=== PATIENT | female | born 2000 | race Caucasian/White ===

== ENCOUNTER 2022-05-19 07:58 | Outpatient (CLI) | payer BC, MEDICAID, SELFPAY ==
[2022-05-19] VITALS (11 sets, daily range): BP systolic 108–122; BP diastolic 64–81; PULSE 31–107; RESP 16–18; TEMP 36.5–37.7; O2SAT 82–100; BMI 24.5
--- NOTE | 2022-05-19 08:25 | ED.NAVMDI ---
HPI - Nausea/Vomiting/Diarrhea General Time Seen by Provider: 08:25 Date Seen: 05/19/22 Chief complaint: Nausea/Vomiting Stated complaint: 36 weeks /vomiting Time Seen by Provider: 05/19/22 08:25 Source: patient and RN notes reviewed Mode of arrival: ambulatory Limitations: no limitations History of Present Illness HPI Narrative: Tana is a very pleasant 21-year-old female with her 1st baby who comes to the emergency room after vomiting. Patient notes the onset of vomiting last evening. This has been ongoing and she has been unable to keep any fluids down. She has not experienced any diarrhea or abdominal pain. Notes that she has been having ?[place]man[place] and ?but denies any pain. She denies any urinary discomfort. She notes that she has not urinated for quite some time. This has been uncomplicated to this point. She has not had any high blood pressure. When I enter the room nursing staff tells me they got 150 for heart tones. Tana has been feeling baby move. Associated nausea: Yes Related Data Home Medications Medication Instructions Recorded Confirmed prenat.vits,shira,[id number] 1 tab PO DAILY 05/19/22 05/19/22 Allergies Allergy/AdvReac Type Severity Reaction Status Date / Time azithromycin [From Zithromax] Allergy Mild rash Verified 05/19/22 08:11 Review of Systems Status of ROS: Reports: 10 or more systems reviewed and unremarkable except as noted in History and below Const: Denies: fever or chills Eyes: Denies: change in vision ENMT: Denies: throat pain, neck pain or difficulty swallowing Cardio: Denies: chest pain, palpitations, swelling of feet/ankles or shortness of breath with exertion Resp: Denies: shortness of breath or cough GI: Reports: nausea and vomiting; Denies: abdominal pain, diarrhea, difficulty swallowing or blood in stool : Reports: decreased urine ouput; Denies: painful urination Musculo: Denies: back pain or neck pain Integ/Breast: Denies: rash Neuro: Denies: headache PFSH PFSH Social History Smoking Status: Never smoker Do you use any of these nicotine containing products: None Second hand tobacco smoke exposure: No How often do you have a drink containing alcohol: never AUDIT-C Alcohol total score: 0 Non-prescribed substance use: denies use Exam Narrative: Exam Narrative: Tana is alert and oriented. GCS of 15 External ears eyes nose clear. She does have moist mucous membranes but no excessive saliva. Neck was supple without lymphadenopathy Heart with a tachycardic rate but normal rhythm. Lungs are clear bilaterally Abdomen is gravid but soft no tenderness noted. Lower extremities with scant peripheral edema. No calf tenderness. Const: Vital Signs, click to edit/add: Vital Signs - 24 hr 05/19/22 08:07 05/19/22 08:40 05/19/22 08:51 Temperature 97.7 F Pulse Rate 107 H 107 H Pulse Rate [Right Pulse Oximeter] 105 H Respiratory Rate 18 Blood Pressure 119/78 Blood Pressure [Ri ght Upper Arm] 122/81 Pulse Oximetry 98 98 98 Oxygen Delivery Me thod Room Air 05/19/22 09:00 05/19/22 09:01 05/19/22 09:02 Temperature Pulse Rate 86 96 88 Pulse Rate [Right Pulse Oximeter] Respiratory Rate Blood Pressure 119/74 Blood Pressure [Ri ght Upper Arm] Pulse Oximetry 98 99 98 Oxygen Delivery Me thod 05/19/22 09:30 05/19/22 09:31 05/19/22 10:09 Temperature Pulse Rate 95 93 Pulse Rate [Right Pulse Oximeter] Respiratory Rate 18 Blood Pressure 108/74 Blood Pressure [Ri ght Upper Arm] 120/73 Pulse Oximetry 100 100 Oxygen Delivery Me thod Course Course Hospital Course: Differential diagnosis does include but is not limited to viral gastroenteritis, gastritis, biliary colic, small-bowel obstruction, ileus and labor. Will place an IV and give 2 L of normal saline. 4 mg of IV Zofran will be given for nausea. CBC, comprehensive panel, urinalysis also ordered. Will also include a COVID/influenza swab. Reevaluation(s) Reevaluation #1: No further vomiting after Zofran. Vital Signs Vital signs: Initial Vital Signs Temperature 97.7 F 05/19/22 08:07 Temperature Source Temporal Artery Scan 05/19/22 08:07 Pulse Rate 105 H 05/19/22 08:07 Pulse Rhythm 05/19/22 08:07 Respiratory Rate 18 05/19/22 08:07 Blood Pressure 122/81 05/19/22 08:07 Blood Pressure Mean 94 05/19/22 08:07 Blood Pressure Position Sitting 05/19/22 08:07 Pulse Oximetry 98 05/19/22 08:07 Oxygen Delivery Method 05/19/22 08:07 Vital Signs Temperature 97.7 F 05/19/22 08:07 Pulse Rate 105 H 05/19/22 08:07 Respiratory Rate 18 05/19/22 08:07 Blood Pressure 122/81 05/19/22 08:07 Pulse Oximetry 98 05/19/22 08:07 Oxygen Delivery Method 05/19/22 08:07 Temperature 97.7 F 05/19/22 08:07 Pulse Rate 93 05/19/22 09:31 Respiratory Rate 18 05/19/22 10:09 Blood Pressure 120/73 05/19/22 10:09 Pulse Oximetry 100 05/19/22 09:31 Oxygen Delivery Method 05/19/22 08:07 MDM - Nausea/Vomiting/Diarrhea MDM Narrative Medical decision making narrative: 1. Vomiting-at this time laboratory values including a white count and LFTs are reassuring. Patient has had no further vomiting. Been to fluid challenge sure but this has not been accomplished at this point. OB nurses here at this time. 2. Contractions-patient notes that she does have some low abdominal discomfort at this time. OB nurses concerned that she does not have a reactive strip. They will be taking patient down to the floor for continued IV fluids as well as further evaluation. They state that they will be in contact with Dr. Cruz who is on-call at this time. 3. Disposition-discharged from the ER and sent to OB for observation. Results discussed with family although urine results were not back at that time. They do include 4+ urinary ketones. Medical Records Attestation: I reviewed the patient's medical records. Lab Data Attestation: I reviewed the patient's lab results. Labs: Lab Results 05/19/22 05/19/22 05/19/22 Range/Units 08:47 08:47 08:53 WBC 5.92 (4.50-11.00) K/uL RBC 4.10 (4.00-5.20) m/uL Hgb 13.1 (12.0-16.0) gm/dL Hct 37.6 (33.0-51.0) % MCV 92 (80-100) fL MCH 32 (26-34) pg MCHC 35 (32-36) gm/dL RDW Coeff of Shanell 13.4 (11.5-15.5) % Plt Count 92 L (140-440) K/uL Neut % (Auto) 88.3 H (42.0-72.0) % Lymph % (Auto) 5.1 L (20-44) % [place] % (Auto) 5.7 (0.0-11.0) % Eos % (Auto) 0.2 (0.0-7.0) % Baso % (Auto) 0.2 (0.0-3.0) % Neut # (Auto) 5.20 (1.7-7.0) K/uL Lymph # (Auto) 0.30 L (0.90-2.90) K/uL [place] # (Auto) 0.30 (0.00-0.90) K/UL Eos # (Auto) 0.01 (0.00-0.50) K/uL Baso # (Auto) 0.01 (0.00-0.30) K/uL Sodium 136 (135-149) mmol/L Potassium 3.5 L (3.6-5.1) mmol/L Chloride 108 (96-114) mmol/L Carbon Dioxide 22 (20-32) mmol/L BUN 10 (5-24) mg/dL Creatinine 0.5 (0.5-1.5) mg/dL Estimated Creat Clear 179.54 Estimated GFR 137 ml/min Glucose 97 (60-115) mg/dL Calcium 8.7 (8.4-10.6) mg/dL Total Bilirubin 0.9 (0.1-1.5) mg/dL AST 23 (12-35) U/L ALT 15 (4-35) U/L Alkaline Phosphatase 122 (40-150) U/L Total Protein 6.9 (6.0-8.3) g/dL Albumin 3.9 (3.3-5.0) g/dL Urine Color (Yellow) Urine Appearance (Clear) Urine pH (5.0-8.5) Ur Specific [place] (1.000-1.030) Urine Protein (Negative) Urine Glucose (UA) (Negative) Urine Ketones (Negative) Urine Blood (Negative) Urine Nitrite (Negative) Urine Bilirubin (Negative) Urine Urobilinogen (0.2-1.0) Ur Leukocyte Esterase (Negative) SARS-CoV-2 (PCR) Negative SARS-CoV-2 (Negative) Influenza Type A (PCR) Negative PCR FLU A (Negative) Influenza Type B (PCR) Negative PCR FLU B (Negative) 05/19/22 Range/Units 08:53 WBC (4.50-11.00) K/uL RBC (4.00-5.20) m/uL Hgb (12.0-16.0) gm/dL Hct (33.0-51.0) % MCV (80-100) fL MCH (26-34) pg MCHC (32-36) gm/dL RDW Coeff of Shanell (11.5-15.5) % Plt Count (140-440) K/uL Neut % (Auto) (42.0-72.0) % Lymph % (Auto) (20-44) % [place] % (Auto) (0.0-11.0) % Eos % (Auto) (0.0-7.0) % Baso % (Auto) (0.0-3.0) % Neut # (Auto) (1.7-7.0) K/uL Lymph # (Auto) (0.90-2.90) K/uL [place] # (Auto) (0.00-0.90) K/UL Eos # (Auto) (0.00-0.50) K/uL Baso # (Auto) (0.00-0.30) K/uL Sodium (135-149) mmol/L Potassium (3.6-5.1) mmol/L Chloride (96-114) mmol/L Carbon Dioxide (20-32) mmol/L BUN (5-24) mg/dL Creatinine (0.5-1.5) mg/dL Estimated Creat Clear Estimated GFR ml/min Glucose (60-115) mg/dL Calcium (8.4-10.6) mg/dL Total Bilirubin (0.1-1.5) mg/dL AST (12-35) U/L ALT (4-35) U/L Alkaline Phosphatase (40-150) U/L Total Protein (6.0-8.3) g/dL Albumin (3.3-5.0) g/dL Urine Color Yellow (Yellow) Urine Appearance Cloudy A (Clear) Urine pH 6.0 (5.0-8.5) Ur Specific [place] >= 1.030 (1.000-1.030) Urine Protein 1+ A (Negative) Urine Glucose (UA) Negative (Negative) Urine Ketones 4+ A (Negative) Urine Blood Negative (Negative) Urine Nitrite Negative (Negative) Urine Bilirubin 1+ A (Negative) Urine Urobilinogen 0.2 (0.2-1.0) Ur Leukocyte Esterase Trace A (Negative) SARS-CoV-2 (PCR) (Negative) Influenza Type A (PCR) (Negative) Influenza Type B (PCR) (Negative) Discharge Plan Discharge Clinical Impression: Vomiting Patient Disposition: Home, Self-Care Condition: Improved Additional Instructions: Proceed to OB for continued monitoring and IV fluids Prescriptions: No Action prenat.vits,shira,[id number]-[id number] 1 tab PO DAILY Follow Up/Referrals: Provider,Not a Local [Referring] - Stand Alone Forms: MyHealth Info Instructions Discharge Comment: to center with center staff
[2022-05-19] MEDS: ONDANSETRON 2 MG/ML inj 4 MG IVP (08:46)
[2022-05-19] MEDS: 0.9 % SODIUM CHLORIDE 1000 ml 1,000 ML IV ×2 (08:46→10:07)
[2022-05-19 08:58] LABS: Basophils Absolute Auto 0.01 K/uL (0.00-0.30); Basophils Percent Auto 0.2 % (0.0-3.0); Eosinophils Absolute Auto 0.01 K/uL (0.00-0.50); Eosinophils Percent Auto 0.2 % (0.0-7.0); Hematocrit 37.6 % (33.0-51.0); Hemoglobin* 13.1 gm/dL (12.0-16.0); Immature Granulocytes Abs Auto 0.03 K/uL (0.00-0.30); Immature Granulocytes Pct Auto 0.5 %; Lymphocytes Percent Auto 5.1 % (20-44); Mean Corpuscular HGB Conc 35 gm/dL (32-36); Mean Corpuscular Hemoglobin 32 pg (26-34); Mean Corpuscular Volume 92 fL (80-100); Monocytes Percent Auto 5.7 % (0.0-11.0); Neutrophils Percent Auto 88.3 % (42.0-72.0); Platelet Count* 92 K/uL (140-440); RDW Coefficient of Variation % 13.4 % (11.5-15.5); White Blood Count* 5.92 K/uL (4.50-11.00)
[2022-05-19 09:00] LABS: Slide Review Reflex No
[2022-05-19 09:22] LABS: Albumin* 3.9 g/dL (3.3-5.0); Chloride* 108 mmol/L (96-114); Potassium* 3.5 mmol/L (3.6-5.1); Sodium* 136 mmol/L (135-149)
[2022-05-19 09:24] LABS: Aspartate Amino Transferase* 23 U/L (12-35); Bilirubin Total* 0.9 mg/dL (0.1-1.5); Carbon Dioxide* 22 mmol/L (20-32); Creatinine* 0.5 mg/dL (0.5-1.5); Est. Creatinine Clearance* 179.54; Estimated Glomerular Filt Rate 137 ml/min; Total Protein* 6.9 g/dL (6.0-8.3)
[2022-05-19 09:25] LABS: Alanine Aminotransferase* 15 U/L (4-35); Alkaline Phosphatase* 122 U/L (40-150); Blood Urea Nitrogen* 10 mg/dL (5-24); Calcium* 8.7 mg/dL (8.4-10.6); Glucose* 97 mg/dL (60-115)
[2022-05-19 09:37] LABS: PCR FLU A Negative PCR FLU A (Negative); PCR FLU B Negative PCR FLU B (Negative)
[2022-05-19 09:40] LABS: SARS PCR* Negative SARS-CoV-2 (Negative)
[2022-05-19 09:58] LABS: Appearance Urine Cloudy (Clear); Bilirubin Urine 1+ (Negative); Blood Urine Negative (Negative); Color Urine Yellow (Yellow); Glucose Urine Negative (Negative); Ketones Urine 4+ (Negative); Leukocyte Esterase Urine Trace (Negative); Nitrite Urine Negative (Negative); Protein Urine 1+ (Negative); Specific Gravity Urine >= 1.030 (1.000-1.030); Urobilinogen Urine 0.2 (0.2-1.0)
[2022-05-19 10:14] LABS: Bacteria Urine Many; RBC Urine 0-2 (0-2); Squamous Epithelial Cell Urine Moderate (None-Few)
--- NOTE | 2022-05-19 17:55 | PC.OBNST ---
NST Note NST Note Start: 05/19/22 10:28 Freq: ONCE Status: Discharge Protocol: Document 05/19/22 17:40 SD (Rec: 05/19/22 17:55 SD [id number]) NST Note 1 Para (# of births) 0 EDC 06/17/22 Gestational Age In Weeks & Days 35 Weeks & 6 Days Patient Presented with Complaint(s) of Nausea and vomiting Reactive Yes Appropriate for Gestational Age Yes RN Miranda Date 05/19/22 Reactive Yes Appropriate for Gestational Age Yes RN Brijesh Date 05/19/22 OB NST charge Yes Complete NST Note via Write Note Yes The provider's electronic signature indicates the NST is reactive/appropriate for gestational age. *Note to provider: If an addendum is required, open the patient's chart and click on the note under the Nurse/Allied Health tab.
== END 2022-05-19 13:13 | disposition home or self-care (01) ==
LOC: ED 10:09 → OB OUT 10:17 → OB 10:18
PROVIDERS: Emergency Provider Family Medicine; PCP Family Medicine; Visit Provider Family Medicine
DX: O21.2 Late vomiting of pregnancy (principal); Z3A.35 35 weeks gestation of pregnancy
CPT/HCPCS: 36415; 59025; 80053; 81001; 85025; 87086; 87631; 99213; 99284; J2405; J7030

== ENCOUNTER 2022-06-14 09:37 | Inpatient (IN) | payer BC, MEDICAID, SELFPAY ==
[2022-06-14] VITALS (56 sets, daily range): BP systolic 104–153; BP diastolic 53–85; PULSE 56–169; RESP 16–18; TEMP 36.6–37.3; O2SAT 99–100; BMI 24.7
[2022-06-14 10:58] LABS: SARS PCR* Negative SARS-CoV-2 (Negative)
[2022-06-14 11:46] LABS: Basophils Absolute Auto 0.01 K/uL (0.00-0.30); Basophils Percent Auto 0.1 % (0.0-3.0); Eosinophils Absolute Auto 0.03 K/uL (0.00-0.50); Eosinophils Percent Auto 0.4 % (0.0-7.0); Immature Granulocytes Abs Auto 0.03 K/uL (0.00-0.30); Immature Granulocytes Pct Auto 0.4 %; Lymphocytes Percent Auto 13.5 % (20-44); Mean Corpuscular HGB Conc 35 gm/dL (32-36); Mean Corpuscular Hemoglobin 32 pg (26-34); Mean Corpuscular Volume 90 fL (80-100); Monocytes Percent Auto 7.1 % (0.0-11.0); Neutrophils Percent Auto 78.5 % (42.0-72.0); Platelet Count* 89 K/uL (140-440); RDW Coefficient of Variation % 12.7 % (11.5-15.5); Red Blood Count 3.76 m/uL (4.00-5.20)
[2022-06-14 11:55] LABS: Slide Review Reflex No
[2022-06-14] MEDS: ROPIVACAINE 0.2% 100 ml 100 ML 12 MG EPIDURAL (12:45)
--- NOTE | 2022-06-14 12:58 | PM.ANBPRC ---
[facility] Social History Smoking Status: Never smoker Do you use any of these nicotine containing products: None Second hand tobacco smoke exposure: No How often do you have a drink containing alcohol: never AUDIT-C Alcohol total score: 0 Non-prescribed substance use: denies use Meds Home Medications and Allergies Home Medications Medication Instructions Recorded Confirmed Type prenat.vits,shira,[id number] 1 tab PO DAILY 05/19/22 06/14/22 History Allergies Allergy/AdvReac Type Severity Reaction Status Date / Time azithromycin [From Zithromax] Allergy Mild rash Verified 06/14/22 09:11 Results Labs Labs: Laboratory Results - last 24 hr 06/14/22 06/14/22 06/14/22 09:36 11:40 11:40 WBC 7.20 RBC 3.76 L Hgb 12.0 Hct 34.0 MCV 90 MCH 32 MCHC 35 RDW Coeff of Shanell 12.7 Plt Count 89 L Neut % (Auto) 78.5 H Lymph % (Auto) 13.5 L [place] % (Auto) 7.1 Eos % (Auto) 0.4 Baso % (Auto) 0.1 Neut # (Auto) 5.70 Lymph # (Auto) 1.00 [place] # (Auto) 0.50 Eos # (Auto) 0.03 Baso # (Auto) 0.01 SARS-CoV-2 (PCR) Negative SARS-CoV-2 Blood Type O Positive Antibody Screen NEGATIVE Vital Signs Vital Signs: Last Vital Signs Temp 98 F 06/14/22 12:57 Pulse 65 06/14/22 12:57 Resp 16 06/14/22 09:19 BP 111/64 06/14/22 12:57 Pulse Ox 100 06/14/22 12:52 Weight: 73.936 kg Height: 172.72 cm Anesthesia Procedures Epidural Insertion Patient Location: OB Start Time: 12:30 Stop Time: 13:30 Start Date: 06/14/22 Stop Date: 06/14/22 Reason for Block: procedure for pain Patient Position: sitting Performed By: John Onofre Preanesthetic Checklist: IV checked, risks and benefits discussed, monitors and equipment checked and anesthesia consent Prep: chlorhexidine gluconate Monitoring: blood pressure monitoring, continuous pulse oximetry and heart rate Approach: midline Vertebral Space: lumbar (1-5) Epidural Technique: MANJU saline Needle Type: Tuohy needle Injection Technique: continuous catheter Needle gauge: 17 Needle Length (cm): 10 cm Needle Insertion Depth (cm): 5 Catheter Gauge: 19 Catheter Type: multi-orifice Catheter at skin depth (cm): 9 Test Dose Result: negative and lidocaine 1.5% with epinephrine 1 to 200,000
[2022-06-14] MEDS: LACTATED RINGERS 1000 ML 1,000 ML 125 ML IV (14:28)
[2022-06-14 18:13] LABS: Alanine Aminotransferase* 14 U/L (4-35); Aspartate Amino Transferase* 23 U/L (12-35)
[2022-06-14 18:56] LABS: Creatinine* 0.4 mg/dL (0.5-1.5); Est. Creatinine Clearance* 224.43; Estimated Glomerular Filt Rate 144 ml/min
[2022-06-14 18:57] LABS: Blood Urea Nitrogen* 7 mg/dL (5-24)
[2022-06-14 19:05] LABS: Fibrinogen* 440 mg/dL (200-450)
[2022-06-14 19:06] LABS: INR 0.96 (0.91-1.10); Prothrombin Time 13.4 Seconds
--- NOTE | 2022-06-14 19:47 | PM.OBHPLI ---
OB - H&P: HPI Labor/Induction History of Present Illness Time Seen by Provider: 19:47 Date Seen: 06/14/22 Chief Complaint: The patient is a 21 year old 1 para 0 at 40+0 weeks gestation by 8 wk US, who presents with contractions. uncomplicated, though was found to have platelets of 89 upon admission. Chart review shows platelets of 92 1 month ago at triage visit. Patient endorses contractions intermittently over the past few days. Periods of contractions every 5 minutes, but then would peter out. More intense and consistent overnight. Presented to L&D this AM, and was found to be 3.5/90/-1 and katelynn every 3-4 minutes. She was admitted, and requested epidural for pain control at 1245. AROM for clear fluid at 1530. Patient progressed to complete at 1917, and is currently pushing with good effort. Chief complaint: Maternity : 1 Para: 0 Date of last menstrual period: 07/30/21 Estimated date of delivery: 05/06/22 Gestational age based on last menstrual period: 45 Narrative: Tana Fonseca is a 21 year old 1 para 0 at 40+0 weeks gestation by 8 wk US, who presents with contractions. uncomplicated, though was found to have platelets of 89 upon admission. Chart review shows platelets of 92 1 month ago at triage visit. Patient endorses contractions intermittently over the past few days. Periods of contractions every 5 minutes, but then would peter out. More intense and consistent overnight. Presented to L&D this AM, and was found to be 3.5/90/-1 and katelynn every 3-4 minutes. She was admitted, and requested epidural for pain control at 1245. AROM for clear fluid at 1530. Patient progressed to complete at 1917, and is currently pushing with good effort. History of Present Dating criteria: based on 1st trimester US only care: good care Ultrasounds: normal 1st trimester US and normal mid trimester US Abnormal ultrasound findings: 20 week survey with EFW 63rd percentile. Labs Blood type: O (+) positive Rubella: immune RPR/VDLR: nonreactive GBS status: negative HBsAG: negative Review of Systems Status of ROS: Reports: 10 or more systems reviewed and unremarkable except as noted in History and below Meds Home Medications and Allergies Home Medications Medication Instructions Recorded Confirmed Type prenat.vits,shira,jaa-vpjm-ztaxa 1 tab PO DAILY 05/19/22 06/14/22 History Allergies Allergy/AdvReac Type Severity Reaction Status Date / Time azithromycin [From Zithromax] Allergy Mild rash Verified 06/14/22 09:11 OB - H&P: Exam Physical Exam: Vital signs: Temp Pulse Resp BP Pulse Ox 98.9 F 103 H 18 124/70 100 06/14/22 19:30 06/14/22 19:31 06/14/22 19:30 06/14/22 19:31 06/14/22 12:52 Narrative: General appearance: Well-appearing adult female. Alert, oriented and appropriate. Sitting up in hospital bed. HEENT: EOMI, no conjunctival injection or discharge. MMM. Neck: Supple. CV: RRR, no rubs, murmurs or extra heart sounds. Pulm: CTAB, no wheezes, rales or rhonchi. Abdomen: Gravid. Soft, non-tender. MSK: Moving all extremities. Ext: Warm and well-perfused. No LE edema. Skin: No rashes appreciated over exposed skin. Neuro: Grossly normal strenth and sensation. No focal deficits. Psych: Normal affect. Detailed Labor and Delivery Exam: Dilation (cm): 10 Effacement (%): 100 Fetus (Single): Station: +4 Amniotic Membrane Status: AROM Amniotic Membrane Fluid Description: Clear Heart Rate Baseline: 140 Monitor Accelerations: Present Monitor Decelerations: Variable Nursing Home Variability: Moderate (6-25) OB - Results Labs Labs: Short CBC 06/14/22 Range/Units 11:40 WBC 7.20 (4.50-11.00) K/uL Hgb 12.0 (12.0-16.0) gm/dL Hct 34.0 (33.0-51.0) % Plt Count 89 L (140-440) K/uL BMP 06/14/22 11:40 BUN 7 Creatinine 0.4 L Liver Function 06/14/22 Range/Units 11:40 AST 23 (12-35) U/L ALT 14 (4-35) U/L OB - Problem Based A/P Additional Plan (1) Term : Status: Acute Plan: - Complete and pushing - Epidural for pain relief with good effect - GBS negative - FHT reassuring - Anticipate vaginal delivery (2) Thrombocytopenia: Problem details: Platelets 89 on admission. Previously 92 on 05/19/21. 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 Status: Acute Plan: - Monitor closely for bleeding - Trend platelets after delivery. Consider additional work-up if persistent.
[2022-06-14] MEDS: OXYTOCIN 30 unit/500 ML in NS 30 UNIT/500 ML BAG 300 UNIT IVPB (20:38)
[2022-06-14] MEDS: LIDOCAINE 1 % PF 30 ML INJECTION (20:40)
--- NOTE | 2022-06-14 20:52 | W.PM.VAGDEL1 ---
Procedure Delivery date: 06/14/22 Procedure Done: Global Intrapartal Events: None Delivery augmentation: rupture of membranes Delivery monitor: external FHT Route of delivery: Episiotomy description: None Laceration description: Vaginal - 1st Degree Delivery repair: Vicryl Estimated blood loss (mL): 100 Anesthesia type: Epidural Narrative: 21 yo at 40w0d by early US who presented with contractions. Found to be 3.5/90/-1 on admission around 0800. Received epidural for pain control with good results. AROM for clear fluid at 1533. Progressed to complete at 1916. Began pushing with good effort. Spontaneous delivery of a vigorous male over intact perineum at 2026. Infant was placed on maternal chest. Cord was clamped and cut after 1 minute. There was spontaneous delivery of placenta, complete, 3V cord, within 5 minutes. A first degree vaginal laceration was repaired with 3-0 vicryl suture. QBL was 100 cc. All counts were correct. and mother are resting comfortably. Infant Infant Gender: Male presentation: vertex Placental Delivery Description: Spontaneous Cord Description: 3 Vessels
[2022-06-14 23:21] LABS: Basophils Absolute Auto 0.01 K/uL (0.00-0.30); Basophils Percent Auto 0.1 % (0.0-3.0); Eosinophils Absolute Auto 0.02 K/uL (0.00-0.50); Eosinophils Percent Auto 0.2 % (0.0-7.0); Hematocrit 33.6 % (33.0-51.0); Hemoglobin* 11.9 gm/dL (12.0-16.0); Immature Granulocytes Abs Auto 0.04 K/uL (0.00-0.30); Immature Granulocytes Pct Auto 0.4 %; Lymphocytes Percent Auto 8.5 % (20-44); Mean Corpuscular HGB Conc 35 gm/dL (32-36); Mean Corpuscular Hemoglobin 32 pg (26-34); Mean Corpuscular Volume 90 fL (80-100); Monocytes Percent Auto 8.8 % (0.0-11.0); Platelet Count* 83 K/uL (140-440); RDW Coefficient of Variation % 12.6 % (11.5-15.5); Red Blood Count 3.75 m/uL (4.00-5.20); White Blood Count* 10.01 K/uL (4.50-11.00)
[2022-06-14 23:52] LABS: Slide Review Reflex No
[2022-06-15] MEDS: IBUPROFEN 600 MG TABLET PO (00:46)
[2022-06-15 03:00] VITALS: BP 124/70; PULSE 73; RESP 16; TEMP 37.1; O2SAT 95
[2022-06-15 07:18] LABS: Basophils Absolute Auto 0.02 K/uL (0.00-0.30); Basophils Percent Auto 0.2 % (0.0-3.0); Eosinophils Absolute Auto 0.04 K/uL (0.00-0.50); Eosinophils Percent Auto 0.5 % (0.0-7.0); Hemoglobin* 10.9 gm/dL (12.0-16.0); Immature Granulocytes Abs Auto 0.03 K/uL (0.00-0.30); Immature Granulocytes Pct Auto 0.4 %; Lymphocytes Percent Auto 15.1 % (20-44); Mean Corpuscular HGB Conc 35 gm/dL (32-36); Mean Corpuscular Hemoglobin 32 pg (26-34); Mean Corpuscular Volume 91 fL (80-100); Monocytes Percent Auto 10.8 % (0.0-11.0); Platelet Count* 85 K/uL (140-440); RDW Coefficient of Variation % 12.6 % (11.5-15.5); White Blood Count* 8.15 K/uL (4.50-11.00)
[2022-06-15 07:26] LABS: Slide Review Reflex No
--- NOTE | 2022-06-15 07:32 | PM.OBPNVD1 ---
OB - PN:Subj Subjective Time Seen by Provider: 07:32 Date Seen: 06/15/22 Interval history: Patient feels she has pain at site of epidural insertion. Patient comments OB post-: no complaints and pain well controlled infant status: feeding status: exclusively OB - PN: Obj Exam Physical Exam: Vital signs: Temp Pulse Resp BP Pulse Ox O2 Del Method 98.8 F 73 16 124/70 95 06/15/22 03:00 06/15/22 03:00 06/15/22 03:00 06/15/22 03:00 06/15/22 03:00 06/15/22 03:00 Constitutional: Constitutional: no acute distress Routine HEENT Exam: Head: Present atraumatic Routine Respiratory Exam: Comments: Breathing comfortably Routine Abdominal Exam: Abdominal: Present soft; Absent tenderness Fundus: Present firm Routine Extremities Exam: Extremities: Present full ROM and normal inspection; Absent calf tenderness Routine Neurological Exam: Neurological: Present alert and oriented X3 OB - PN: Obj Data Labs Labs: Laboratory Results - last 24 hr 06/14/22 06/14/22 06/14/22 09:36 11:40 11:40 WBC 7.20 RBC 3.76 L Hgb 12.0 Hct 34.0 MCV 90 MCH 32 MCHC 35 RDW Coeff of Shanell 12.7 Plt Count 89 L Neut % (Auto) 78.5 H Lymph % (Auto) 13.5 L [place]w % (Auto) 7.1 Eos % (Auto) 0.4 Baso % (Auto) 0.1 Neut # (Auto) 5.70 Lymph # (Auto) 1.00 [place]w # (Auto) 0.50 Eos # (Auto) 0.03 Baso # (Auto) 0.01 INR Fibrinogen BUN Creatinine Estimated Creat Clear Estimated GFR AST ALT SARS-CoV-2 (PCR) Negative SARS-CoV-2 Blood Type O Positive Antibody Screen NEGATIVE 06/14/22 06/14/22 06/14/22 11:40 11:40 18:42 WBC RBC Hgb Hct MCV MCH MCHC RDW Coeff of Shanell Plt Count Neut % (Auto) Lymph % (Auto) [place]omew % (Auto) Eos % (Auto) Baso % (Auto) Neut # (Auto) Lymph # (Auto) [place]tholomew # (Auto) Eos # (Auto) Baso # (Auto) INR 0.96 Fibrinogen 440 BUN 7 Creatinine 0.4 L Estimated Creat Clear 224.43 Estimated GFR 144 AST 23 ALT 14 SARS-CoV-2 (PCR) Blood Type Antibody Screen 06/14/22 06/15/22 23:10 06:37 WBC 10.01 8.15 RBC 3.75 L 3.40 L Hgb 11.9 L 10.9 L Hct 33.6 31.0 L MCV 90 91 MCH 32 32 MCHC 35 35 RDW Coeff of Shanell 12.6 12.6 Plt Count 83 L 85 L Neut % (Auto) 82.0 H 73.0 H Lymph % (Auto) 8.5 L 15.1 L [place]w % (Auto) 8.8 10.8 Eos % (Auto) 0.2 0.5 Baso % (Auto) 0.1 0.2 Neut # (Auto) 8.20 H 5.90 Lymph # (Auto) 0.90 1.20 [place]w # (Auto) 0.90 0.90 Eos # (Auto) 0.02 0.04 Baso # (Auto) 0.01 0.02 INR Fibrinogen BUN Creatinine Estimated Creat Clear Estimated GFR AST ALT SARS-CoV-2 (PCR) Blood Type Antibody Screen OB - PN: A/P Vaginal Delivery Assessment and Plan (1) Term : Status: Acute Assessment and Plan: - doing well, pain well controlled - Pain at epidural site, will have anesthesia assess today. (2) Thrombocytopenia: Problem details: Platelets 89 on admission. Previously 92 on 05/19/21. 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 Status: Acute Assessment and Plan: - platelet count stable at 85 today Plan day: 1 Plan: routine care Comments: - plan on discharging home tomorrow - Would like to meet with prior to discharge
[2022-06-15 07:58] VITALS: BP 133/81; PULSE 65; RESP 16; TEMP 37.1; O2SAT 93
[2022-06-15] MEDS: DOCUSATE SODIUM 100 MG CAPSULE PO (08:00)
[2022-06-15 12:22] VITALS: BP 124/70; PULSE 80; RESP 16; TEMP 36.6; O2SAT 96
[2022-06-15 16:07] VITALS: BP 136/75; PULSE 69; RESP 16; TEMP 36.7; O2SAT 98
[2022-06-15 21:40] VITALS: BP 134/76; PULSE 63; RESP 16; TEMP 36.6; O2SAT 99
[2022-06-16 04:59] VITALS: BP 127/78; PULSE 67; RESP 16; O2SAT 98
--- NOTE | 2022-06-16 08:27 | P.DS_ITS ---
DS: Providers Provider Date Seen: 06/16/22 Date of admission: 06/14/22 09:37 Primary care physician: Dinora Kendrick MD Admitting Clinician: Dinora Kendrick MD Attending Physician on discharge: Dinora Kendrick MD DS: Diagnosis Discharge Diagnosis (1) (normal spontaneous vaginal delivery): Status: Acute Exam Const: Vital Signs, click to edit/add: Vital Signs - 24 hr 06/15/22 12:22 06/15/22 16:07 06/15/22 21:40 Temperature 97.9 F 98.1 F 97.9 F Pulse Rate [Pulse Oximeter] 80 69 63 Respiratory Rate 16 16 16 Blood Pressure [Ri ght Thigh] 124/70 136/75 134/76 Pulse Oximetry 96 98 99 Oxygen Delivery Me thod Room Air Room Air Room Air 06/16/22 04:59 Temperature Pulse Rate [Pulse Oximeter] 67 Respiratory Rate 16 Blood Pressure [Ri ght Thigh] 127/78 Pulse Oximetry 98 Oxygen Delivery Me thod Room Air Common normals: no apparent distress and average body habitus GI: Common normals: soft to palpation Palpation: soft Other: uterus firm 2 cm below umbilicus OB - DS: Summary Hospital Course Hospital Course: The patient is a 21 year old G 1 P 1 at 40 weeks gestation that was admitted to the Center on 06/14/22 for active labor. She had an uncomplicated vaginal delivery. She delivered a viable male . She is breast feeding. the patient has done well. Peripartum Data Infant delivery method: Vaginal complications: none [place] Infant Gender: Male Infant Discharge Plan: Home Status at Discharge Functional status at discharge: independent ambulation Overall status at discharge: patient is progressing back to baseline Time Spent with Patient Time attestation: Total time spent providing and/or coordinating discharge services: Time spent: Less than 30 minutes Discharge Plan Discharge Disposition: Home, Self-Care Date of Admission: 06/14/22 09:37 Primary Care Provider: Dinora Kendrick I Condition: Stable Anticipated Discharge Date/Time: 06/16/22 08:29 Discharge Medications: Continued prenat.vits,shira,pcv-dscs-gwihn 1 tab PO DAILY Discharge Orders: Discharge Order (Routine); Ordered 06/16/22 Ordered By: Linda Cruz Patient Education: OB Vaginal/Breast Feeding Activity Level: Activity as Tolerated Activity Detail: Pelvic rest, nothing in the vagina x 6 weeks Discharge Diet: Regular Follow Up Appointments: Dinora Kendrick MD [Primary Care Provider] - ([address] Kendrick) Forms: [email or web address] Info Instructions
[2022-06-16] MEDS: DOCUSATE SODIUM 100 MG CAPSULE PO (08:47)
[2022-06-16 10:02] VITALS: BP 125/74; PULSE 67; RESP 18; TEMP 36.8
== END 2022-06-16 10:58 | disposition home or self-care (01) | DRG 560 ==
LOC: OB OUT 09:39 → OB 09:41
PROVIDERS: Nurse Anesthetist, Certified Registered; Admitting Provider Family Medicine; PCP Family Medicine; Visit Provider Family Medicine
DX: O99.12 Other diseases of the blood and blood-forming organs and certain disorders involving the immune mechanism complicating childbirth (principal); D69.6 Thrombocytopenia, unspecified; O70.0 First degree perineal laceration during delivery; Z3A.40 40 weeks gestation of pregnancy; Z37.0 Single live birth
CPT/HCPCS: 01967; 36415; 82565; 84450; 84460; 84520; 85025; 85384; 85610; 86850; 86900; 86901; 87635; A9270; J2001; J2370; J2795; J7120; S0020